=== PATIENT | male | born 1985 | race American Indian/Alaskan Native ===

== ENCOUNTER 2018-07-15 16:18 | Inpatient (IN) | payer OTHER ==
[2018-07-15 16:27] VITALS: BMI 23.7
--- NOTE | 2018-07-15 16:37 | ED PDOC ---
Arrival/HPI - General Historian: Patient - History of Present Illness Narrative History of Present Illness (Text): 07/15/18 16:36 33 year old male, with past medical history of <Tami Cunha - Last Filed: 07/15/18 16:37> <Teofilo Landrum - Last Filed: 07/15/18 16:47> - General Time Seen by Provider: 07/15/18 16:18 Past Medical History - Provider Review Nursing Documentation Reviewed: Yes <Tami Cunha - Last Filed: 07/15/18 16:37> Family/Social History - Physician Review Nursing Documentation Reviewed: Yes Family/Social History: Unknown Family HX <Tami Cunha - Last Filed: 07/15/18 16:37> Allergies/Home Meds <Tami Cunha - Last Filed: 07/15/18 16:37> <Teofilo Landrum - Last Filed: 07/15/18 16:47> Allergies/Adverse Reactions: Allergies shellfish derived Allergy (Verified 07/15/18 16:28) ANAPHYLAXIS Home Medications: Home Meds Medication Instructions Recorded Confirmed Ipratropium/Albuterol Sulfate 0.5 mg INH PRN PRN 07/15/18 07/15/18 [Iprat-Albut 0.5-3(2.5) mg/3 ml] Levofloxacin [Levaquin] 500 mg PO DAILY 07/15/18 07/15/18 Prednisone 10 mg PO BID 07/15/18 07/15/18 Review of Systems - Physician Review All systems were reviewed & negative as marked: Yes - Review of Systems Constitutional: absent: Fevers Respiratory: SOB Cardiovascular: absent: Chest Pain, HARRIS Gastrointestinal: absent: Abdominal Pain, Diarrhea, Nausea, Vomiting Musculoskeletal: absent: Back Pain, Neck Pain Neurological: absent: Headache, Dizziness <Tami Cunha - Last Filed: 07/15/18 16:37> Physical Exam Vital Signs Reviewed: Yes Vital Signs Temp Pulse Resp BP Pulse Ox 07/15/18 16:27 98.6 F 74 19 129/90 97 Temperature: Afebrile Blood Pressure: Normal Pulse: Regular Respiratory Rate: Normal Appearance: Positive for: Well-Appearing, Non-Toxic, Comfortable Pain Distress: None Mental Status: Positive for: Alert and Oriented X 3 - Systems Exam Head: Present: Atraumatic, Normocephalic Pupils: Present: PERRL Extroacular Muscles: Present: EOMI Conjunctiva: Present: Normal Mouth: Present: Moist Mucous Membranes Neck: Present: Normal Range of Motion Respiratory/Chest: Present: Clear to Auscultation, Good Air Exchange. No: Respiratory Distress, Accessory Muscle Use Cardiovascular: Present: Regular Rate and Rhythm, Normal S1, S2. No: Murmurs Abdomen: No: Tenderness, Distention, Peritoneal Signs Back: Present: Normal Inspection Upper Extremity: Present: Normal Inspection. No: Cyanosis, Edema Lower Extremity: Present: Normal Inspection. No: Edema Neurological: Present: GCS=15, CN II-XII Intact, Speech Normal Skin: Present: Warm, Dry, Normal Color. No: Rashes Psychiatric: Present: Alert, Oriented x 3, Normal Insight, Normal Concentration <Tami Cunha - Last Filed: 07/15/18 16:37> Vital Signs Temp Pulse Resp BP Pulse Ox 07/15/18 16:27 98.6 F 74 19 129/90 97 <Teofilo Landrum - Last Filed: 07/15/18 16:47> Medical Decision Making ED Course and Treatment: 07/15/18 16:38 Impression: Differential Diagnosis included but are not limited to: Plan: -- Reassess and disposition Prior Visits: Notes and results from previous visits were reviewed. Progress Notes: <Tami Cunha - Last Filed: 07/15/18 16:37> - Scribe Statement The provider has reviewed the documentation as recorded by the Scribe Sonny Christensen. All medical record entries made by the Scribe were at my direction and personally dictated by me. I have reviewed the chart and agree that the record accurately reflects my personal performance of the history, physical exam, medical decision making, and the department course for this patient. I have also personally directed, reviewed, and agree with the discharge instructions and disposition. <Tami Cunah - Last Filed: 07/15/18 16:37>
--- NOTE | 2018-07-15 17:18 | ED PDOC ---
Arrival/HPI <Tami Cunha - Last Filed: 07/15/18 19:36> - History of Present Illness Narrative History of Present Illness (Text): 07/15/18 17:16 CC: sob, wheezing This is a 33 year old male with PMH of crohns disease, asthma (last admit 07/09/18-07/11/18 in [facility] in [facility]) who presents with sob and wheezing for the past 7 days. Pt was seen admitted in [facility] ([facility]) and treated for asthma exacerbation 07/09/18-07/11/18 (signed out AMA). Pt reports he received duonebs, steroids, magnesium, but did not improve and eventually signed out AMA. He was sent home with prescriptions for duoneb, levofloxacin (4 pills as per pt), prednisone dose pack. Pt states that this all started after he developed a cough productive of yellow sputum on saturday (07/08). Since then he has had worsening exertional sob and cough, with nasal and chest congestion. Pt also states that he felt some crunching under the skin around the neck which started two days ago and is improving. Denies difficult swallowing, food getting stuck in the throat, fever, chills, chest pain, abdominal pain, nausea, vomiting, diarrhea , lightheadedness, dizziness, drooling, leg pain or swelling, recent travel, car ride longer than an hour, airplane rides. PMH: crohns disease, asthma (last admit 07/09/18-07/11/18 in [facility] in [facility]). No history of intubation. Pt has had multiple flairs of asthma while a child, last flair was 2 years ago prior to the most recent h ospitalization PSH: bowel resection in 2002 secondary to crohns, patellar tendon repair 3 years ago Meds: albuterol inhaler, duonebs, levofloxacin, prednisone Allx: seafood Social hx: social smoker, social drinker, occasional marijuana use Did not receive the flu shot this year. <Teofilo Landrum - Last Filed: 07/16/18 11:58> - General Chief Complaint: Shortness Of Breath Time Seen by Provider: 07/15/18 16:18 Past Medical History - Infectious Disease Hx of Infectious Diseases: None - Cardiac Hx Cardiac Disorders: No - Pulmonary Hx Respiratory Disorders: Yes Hx Asthma: Yes - Neurological Hx Neurological Disorder: No - HEENT Hx HEENT Disorder: No - Renal Hx Renal Disorder: No - Endocrine/Metabolic Hx Endocrine Disorders: No - Hematological/Oncological Hx Blood Disorders: No - Integumentary Hx Dermatological Disorder: No - Musculoskeletal/Rheumatological Hx Musculoskeletal Disorders: No - Gastrointestinal Hx Gastrointestinal Disorders: Yes Hx Crohn's Disease: Yes - Genitourinary/Gynecological Hx Genitourinary Disorders: No - Psychiatric Hx Psychophysiologic Disorder: No Hx Substance Use: No <Teofilo Landrum - Last Filed: 07/16/18 11:58> Family/Social History Family/Social History: Unknown Family HX Smoking Status: Never Smoked Hx Alcohol Use: Yes Frequency of alcohol use: Socially Hx Substance Use: No <Teofilo Landrum - Last Filed: 07/16/18 11:58> Allergies/Home Meds <Tami Cunha - Last Filed: 07/15/18 19:36> <Teofilo Landrum - Last Filed: 07/16/18 11:58> Allergies/Adverse Reactions: Allergies shellfish derived Allergy (Verified 07/15/18 16:28) ANAPHYLAXIS Home Medications: Home Meds Medication Instructions Recorded Confirmed Ipratropium/Albuterol Sulfate 0.5 mg INH PRN PRN 07/15/18 07/15/18 [Iprat-Albut 0.5-3(2.5) mg/3 ml] Levofloxacin [Levaquin] 500 mg PO DAILY 07/15/18 07/15/18 Prednisone 10 mg PO BID 07/15/18 07/15/18 Review of Systems - Review of Systems Systems not reviewed;Unavailable: Other (see HPI) <Teofilo Landrum - Last Filed: 07/16/18 11:58> Physical Exam Vital Signs Temp Pulse Resp BP Pulse Ox 07/15/18 18:51 60 18 118/80 99 07/15/18 16:27 98.6 F 74 19 129/90 97 <Tami Cunha - Last Filed: 07/15/18 19:36> Vital Signs Temp Pulse Resp BP Pulse Ox 07/15/18 16:27 98.6 F 74 19 129/90 97 Temperature: Afebrile Blood Pressure: Normal Pulse: Regular Respiratory Rate: Normal Appearance: Positive for: Well-Appearing, Comfortable Pain Distress: None Mental Status: Positive for: Alert and Oriented X 3 - Systems Exam Head: Present: Atraumatic, Normocephalic Extroacular Muscles: Present: EOMI Conjunctiva: Present: Normal Mouth: Present: Moist Mucous Membranes Pharnyx: Present: ERYTHEMA. No: EXUDATE, TONSILS ENLARGED, Muffled/Hoarse Voice, [place] Neck: Present: Normal Range of Motion, Trachea Midline. No: Meningeal Signs, Paraspinal Tenderness, Lymphadenopathy Respiratory/Chest: Present: Good Air Exchange, Wheezes, Rhonchi, Other ((+) crepitus to lower neck and subcutaneous tissue along sugey bilateral clavicle.). No: Respiratory Distress, Accessory Muscle Use, Decreased Breath Sounds, Rales, Retracting Cardiovascular: Present: Regular Rate and Rhythm, Normal S1, S2. No: Rub, Gallop Abdomen: Present: Normal Bowel Sounds. No: Tenderness, Distention, Peritoneal Signs, Rebound, Guarding Upper Extremity: Present: Normal Inspection, NORMAL PULSES Lower Extremity: Present: Normal Inspection, NORMAL PULSES. No: Edema, CALF TENDERNESS Neurological: Present: GCS=15 Skin: Present: Warm, Dry Lymphatic: No: Cervical Adenopathy Psychiatric: Present: Alert, Oriented x 3 <Teofilo Landrum - Last Filed: 07/16/18 11:58> Medical Decision Making ED Course and Treatment: 07/15/18 19:36 33 year old male presents to the Emergency Department complaining of shortness of breath. In agreement with resident note, which includes further HPI details. Patient was seen and evaluated with resident, came up with plan and treatment together. - Lab Interpretations Lab Results: 07/15/18 18:50 07/15/18 18:50 Lab Results 07/15/18 18:50: Sodium 138, Potassium 4.6, Chloride 101, Carbon Dioxide 28, Anion Gap 14, BUN 11, Creatinine 0.8, Est GFR ( Amer) > 60, Est GFR (Non- Af Amer) > 60, Random Glucose 107, Calcium 9.7, Phosphorus 3.1, Magnesium 1.8, Total Bilirubin 0.5, AST 21, ALT 32, Alkaline Phosphatase 71, Total Protein 8.5 H, Albumin 4.5, Globulin 4.0, Albumin/Globulin Ratio 1.1 07/15/18 18:50: WBC 9.1, RBC 4.82, Hgb 14.9, Hct 44.3, MCV 91.9, MCH 30.9, MCHC 33.6, RDW 12.2, Plt Count 254, MPV 10.6, Gran % 88.9 H, Lymph % (Auto) 6.6 L, [facility] % (Auto) 4.4, Eos % (Auto) 0.1 L, Baso % (Auto) 0.0, Gran # 8.09 H, Lymph # (Auto) 0.6 L, [facility] # (Auto) 0.4, Eos # (Auto) 0.0, Baso # (Auto) 0.00 - RAD Interpretation Radiology Orders: 07/15/18 17:37 CXR [CHEST PORTABLE] [RAD] Stat 07/15/18 18:35 CHEST W/O CONTRAST [CT] Stat - Medication Orders Current Medication Orders: Discontinued Medications Albuterol/Ipratropium (Duoneb 3 Mg/0.5 Mg (3 Ml) Ud) 3 ml IH Q15M NICO Stop: 07/15/18 18:16 Last Admin: 07/15/18 18:47 Dose: 3 ml <Tami Cunha - Last Filed: 07/15/18 19:36> ED Course and Treatment: Pt is resting comfortably, without tachypnea, dyspnea. Speaking in full sentences. Pt does have some wheezing on exam with ronchus breath sounds. Subcutaneous crepitus on exam. Will give duonebs x3. Chest X-ray, pre/post peak flow ordered. Chest X-ray shows extensive subcutaneous emphysema involving the soft tissues of the neck bilaterally. Suspect pneumomediastinum. Question possibility of small left apical pneumothorax. Chest CT recommended. Will ordered chest CT with IV contrast. Case discussed with Dr. Malone, radiology, who reports that pt does not need IV contrast. Chest CT w/o contrast ordered. 07/15/18 19:26 Emergency department attending, Dr. Cunha, discussed the case with Dr. Stewart. Transfer of pt care will be made to Dr. Stewart due to Chest CT and labs pending. 07/15/18 19:27 I spoke with [facility] ([facility]) who state that medical records is closed and to request medical records from prior inpatient stay in the morning. I filled out the release of medical information form with the pt, who authorizes release of medical information. Completed form left in pt chart. - RAD Interpretation Narrative RAD Interpretations (Text): Chest X-ray shows extensive subcutaneous emphysema involving the soft tissues of the neck bilaterally. Suspect pneumomediastinum. Question possibility of small left apical pneumothorax. Chest CT recommended. Will ordered chest CT with IV contrast. Bung Remover: Radiologist - EKG Interpretation EKG Interpretation (Text): NSR at 63, no acute sttw changes, early repolarization; WA is 142, QTc is 386 as read by Emergency department attending Interpreted by ED Physician: Yes <Teofilo Landrum - Last Filed: 07/16/18 11:58> - PA / UNION REPRESENTATIVE / Resident Statement MD/DO has reviewed & agrees with the documentation as recorded. MD/DO has examined the patient and agrees with the treatment plan. - Scribe Statement The provider has reviewed the documentation as recorded by the Scribe Sonny Christensen. All medical record entries made by the Scribe were at my direction and personally dictated by me. I have reviewed the chart and agree that the record a ccurately reflects my personal performance of the history, physical exam, medical decision making, and the department course for this patient. I have also personally directed, reviewed, and agree with the discharge instructions and disposition. <Tami Cunha - Last Filed: 07/15/18 19:36> Disposition/Present on Arrival <Tami Cunha - Last Filed: 07/15/18 19:36> - Present on Arrival Any Indicators Present on Arrival: No History of DVT/PE: No History of Uncontrolled Diabetes: No Urinary Catheter: No History of Decub. Ulcer: No History Surgical Site Infection Following: None - Disposition Have Diagnosis and Disposition been Completed?: Yes Disposition Time: 21:44 <Teofilo Landrum - Last Filed: 07/16/18 11:58> - Disposition Diagnosis: Asthma, Subcutaneous emphysema Disposition: HOSPITALIZED Condition: GUARDED
[2018-07-15] MEDS: Albuterol-Ipratrop 3 mg / 0.5 (3 ml) UD IH SCH ×3 (18:00→18:47)
--- NOTE | 2018-07-15 18:12 | RAD ---
HISTORY: sob COMPARISON: None available. TECHNIQUE: Chest, one view. FINDINGS: Extensive subcutaneous emphysema involving soft tissues of the neck bilaterally. LUNGS: No focal consolidation. Please note that chest x-ray has limited sensitivity for the detection of pulmonary masses. PLEURA: No significant pleural effusion identified. Question possibility of small left apical pneumothorax. CARDIOVASCULAR: Suspect pneumomediastinum. Heart size appears within normal limits. No significant atherosclerotic calcification present. OSSEOUS STRUCTURES: No acute osseous abnormality identified. VISUALIZED UPPER ABDOMEN: Unremarkable. OTHER FINDINGS: None. IMPRESSION: Extensive subcutaneous emphysema involving the soft tissues of the neck bilaterally. Suspect pneumomediastinum. Question possibility of small left apical pneumothorax. Recommend CT of the chest for further evaluation. Findings discussed with Dr. Fletcher on 07/15/18 at 605pm
[2018-07-15 18:54] LABS: EOS % 0.1 % (1.5-5.0); GRAN # 8.09 (1.4-6.5); GRAN % 88.9 % (50.0-68.0); HEMOGLOBIN 14.9 g/dL (14.0-18.0); LYMPH # 0.6 (1.2-3.4); LYMPH % 6.6 % (22.0-35.0); MEAN CELL VOLUME 91.9 fl (80.0-105.0); MEAN CORPUSCULAR HEMOGLOBIN 30.9 pg (25.0-35.0); MEAN CORPUSCULAR HGB CONC 33.6 g/dl (31.0-37.0); MEAN PLATELET VOLUME 10.6 fl (7.0-11.0); MONO # 0.4 (0.1-0.6); MONO % 4.4 % (1.0-6.0); RBC 4.82 10^6/uL (3.5-6.1); RED CELL DISTRIBUTION WIDTH 12.2 % (11.5-14.5); WHITE BLOOD COUNT 9.1 10^3/ul (4.5-11.0)
[2018-07-15 19:07] LABS: ALB/GLOB RATIO 1.1 (1.1-1.8); ALBUMIN 4.5 g/dL (3.0-4.8); ALT/SGPT 32 U/L (7-56); AST/SGOT 21 U/L (17-59); BLOOD UREA NITROGEN 11 mg/dL (7-21); CALCIUM 9.7 mg/dL (8.4-10.5); GFR NON-AFRICAN AMERICAN > 60
--- NOTE | 2018-07-15 19:42 | ED PDOC ---
Physical Exam Vital Signs Temp Pulse Resp BP Pulse Ox 07/15/18 18:51 60 18 118/80 99 07/15/18 16:27 98.6 F 74 19 129/90 97 Medical Decision Making ED Course and Treatment: 07/15/18 21:05 CT Chest reviewed by radiologist, shows: History: Asthma. Comparison: None Technique: Noncontrast CT of the chest. Noncontrast CT examination of the chest was obtained. There is no consolidation or atelectasis or pleural effusion. There is no parenchymal nodule. There is scarring and bronchiectatic changes at the right lower lung medially and inferiorly. Scarring left lung base. The heart and hilar mediastinal structures appear within normal limits in size. There is no hilar mediastinal lymphadenopathy. Note is made of pneumomediastinum. There is extensive subcutaneous air present at the supraclavicular regions and axillary regions and along the lateral chest clark. There is no suspicious mass or lymphadenopathy in the upper abdomen. Osseous structures appear intact. Impression: No consolidation or atelectasis or pleural effusion. Bronchiectatic changes and scarring at the right lower lung anteriorly. Mild scarring left lung base. Pneumomediastinum. Extensive subcutaneous air at the supraclavicular and infraclavicular and axillary regions as well as along the lateral chest clark. Close clinical correlation advised. 07/15/18 21:[address] Turner and the resident about patient plan. Dr. Turner agrees to management plan and agrees to admit patient. - Lab Interpretations Lab Results: 07/15/18 18:50 07/15/18 18:50 Lab Results 07/15/18 18:50: Sodium 138, Potassium 4.6, Chloride 101, Carbon Dioxide 28, Anion Gap 14, BUN 11, Creatinine 0.8, Est GFR ( Amer) > 60, Est GFR (Non- Af Amer) > 60, Random Glucose 107, Calcium 9.7, Phosphorus 3.1, Magnesium 1.8, Total Bilirubin 0.5, AST 21, ALT 32, Alkaline Phosphatase 71, Total Protein 8.5 H, Albumin 4.5, Globulin 4.0, Albumin/Globulin Ratio 1.1 07/15/18 18:50: WBC 9.1, RBC 4.82, Hgb 14.9, Hct 44.3, MCV 91.9, MCH 30.9, MCHC 33.6, RDW 12.2, Plt Count 254, MPV 10.6, Gran % 88.9 H, Lymph % (Auto) 6.6 L, [place] % (Auto) 4.4, Eos % (Auto) 0.1 L, Baso % (Auto) 0.0, Gran # 8.09 H, Lymph # (Auto) 0.6 L, [place] # (Auto) 0.4, Eos # (Auto) 0.0, Baso # (Auto) 0.00 - RAD Interpretation Radiology Orders: 07/15/18 17:37 CXR [CHEST PORTABLE] [RAD] Stat 07/15/18 18:35 CHEST W/O CONTRAST [CT] Stat - Medication Orders Current Medication Orders: Discontinued Medications Albuterol/Ipratropium (Duoneb 3 Mg/0.5 Mg (3 Ml) Ud) 3 ml IH Q15M NICO Stop: 07/15/18 18:16 Last Admin: 07/15/18 18:47 Dose: 3 ml Disposition/Present on Arrival - Present on Arrival Any Indicators Present on Arrival: No History of DVT/PE: No History of Uncontrolled Diabetes: No Urinary Catheter: No History of Decub. Ulcer: No History Surgical Site Infection Following: None - Disposition Have Diagnosis and Disposition been Completed?: Yes Diagnosis: Asthma, Subcutaneous emphysema Disposition: HOSPITALIZED Disposition Time: 21:45 Condition: GUARDED
[2018-07-15] MEDS ORDERED: Albuterol 0.083% Inhal Sol (2.5 mg/3 mL) UD INH PRN (23:39)
--- NOTE | 2018-07-16 00:10 | CP.PCM.HP ---
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 He reported one week ago symptoms began w/ a productive cough w/ yellow sputum which resulted in worsening HARRIS, SOB, Wheezing, and Congestion. He was admitted to [facility] treated for asthma exacerbation from 07/09- however left AMA before completing treatment. He stated that 4 days prior to presentation he began experiencing a crunching sensation around his neck and chest. He reports that his asthma symptoms feel much improved compared to one week ago however he does experience some HARRIS with prolonged activity. He denies any difficulty swallowing, throat pain, or abnormal sensation with eating. Denies any trauma to his chest, excessive coughing, or vomiting. Does report a cavity/dental issue in his bottom right jaw. Remainder of 12 system ROS is negative at this time. PMH: crohns disease, asthma (last admit 07/09/18-07/11/18 in [facility] in [facility]). No history of intubation. Pt has had multiple flairs of asthma while a child, last flair was 2 years ago prior to the most recent hospitalization PSH: bowel resection in 2002 secondary to crohns, patellar tendon repair 3 years ago Meds: albuterol inhaler, duonebs, levofloxacin, prednisone Allx: seafood Social hx: social smoker, social drinker, occasional marijuana use Did not receive the flu shot this year. Present on Admission - Present on Admission Any Indicators Present on Admission: No Review of Systems - Review of Systems All systems: reviewed and no additional remarkable complaints except Review of Systems: As per HPI Past Patient History - Infectious Disease Hx of Infectious Diseases: None - Past Social History Smoking Status: Never Smoked - CARDIAC Hx Cardiac Disorders: No - PULMONARY Hx Respiratory Disorders: Yes Hx Asthma: Yes - NEUROLOGICAL Hx Neurological Disorder: No - HEENT Hx HEENT Problems: No - RENAL Hx Chronic Kidney Disease: No - ENDOCRINE/METABOLIC Hx Endocrine Disorders: No - HEMATOLOGICAL/ONCOLOGICAL Hx Blood Disorders: No - INTEGUMENTARY Hx Dermatological Problems: No - MUSCULOSKELETAL/RHEUMATOLOGICAL Hx Musculoskeletal Disorders: No - GASTROINTESTINAL Hx Gastrointestinal Disorders: Yes Hx Crohn's Disease: Yes - GENITOURINARY/GYNECOLOGICAL Hx Genitourinary Disorders: No - PSYCHIATRIC Hx Psychophysiologic Disorder: No Hx Substance Use: No - SURGICAL HISTORY Hx Surgeries: No Meds Allergies/Adverse Reactions: Allergies Allergy/AdvReac Type Severity Reaction Status Date / Time shellfish derived Allergy ANAPHYLAXIS Verified 07/15/18 16:28 Physical Exam - Constitutional Appears: Well, Non-toxic, No Acute Distress - Head Exam Head Exam: ATRAUMATIC, NORMAL INSPECTION, NORMOCEPHALIC - Eye Exam Eye Exam: EOMI, Normal appearance, PERRL - ENT Exam ENT Exam: Mucous Membranes Moist Additional comments: Significant cavity in tooth #31/32 No abcess or drainage appreciated No erythema noted - Neck Exam Additional comments: Crepitus to palpation along neck BL - Respiratory Exam Respiratory Exam: Wheezes (insp + exp wheezes ). absent: Rhonchi, Respiratory Distress Additional comments: Crepitus upon palpation of the chest extending from clavicles to diaphram level bilaterally. - Cardiovascular Exam Cardiovascular Exam: RRR, +S1, +S2. absent: Systolic Murmur - GI/Abdominal Exam GI & Abdominal Exam: Soft. absent: Tenderness - Extremities Exam Extremities exam: Positive for: normal capillary refill, pedal pulses present - Neurological Exam Neurological exam: Alert, CN II-XII Intact, Oriented x3 - Skin Skin Exam: Dry, Intact, Normal Color, Warm Results - Vital Signs Recent Vital Signs: Last Vital Signs Temp 98.2 F 07/15/18 23:11 Pulse 62 07/15/18 23:11 Resp 18 07/15/18 23:11 BP 118/81 07/15/18 23:11 Pulse Ox 98 07/15/18 23:11 - Labs Result Diagrams: 07/15/18 18:50 07/15/18 18:50 Labs: Laboratory Results - last 24 hr 07/15/18 07/15/18 18:50 18:50 WBC 9.1 RBC 4.82 Hgb 14.9 Hct 44.3 MCV 91.9 MCH 30.9 MCHC 33.6 RDW 12.2 Plt Count 254 MPV 10.6 Gran % 88.9 H Lymph % (Auto) 6.[address] [place] [place] % (Auto) 4.4 Eos % (Auto) 0.1 L Baso % (Auto) 0.0 Gran # 8.09 H Lymph # (Auto) 0.[address] [place] # (Auto) 0.4 Eos # (Auto) 0.0 Baso # (Auto) 0.00 Sodium 138 Potassium 4.6 Chloride 101 Carbon Dioxide 28 Anion Gap 14 BUN 11 Creatinine 0.8 Est GFR ( Amer) > 60 Est GFR (Non-Af Amer) > 60 Random Glucose 107 Calcium 9.7 Phosphorus 3.1 Magnesium 1.8 Total Bilirubin 0.5 AST 21 ALT 32 Alkaline Phosphatase 71 Total Protein 8.5 H Albumin 4.5 Globulin 4.0 Albumin/Globulin Ratio 1.1 Assessment & Plan - Assessment and Plan (Free Text) Assessment: 33M presented to [facility] for symptoms of asthma exacerbation, cough, and subcutaneous crepitus admitted for management of asthma exacerbation, and workup of pneumomediastinum Plan: Pneumomediastinum as per gary on CT Chest: CT Chest: There is no consolidation or atelectasis or pleural effusion. There is no parenchymal nodule. There is scarring and bronchiectatic changes at the right lower lung medially and inferiorly. Scarring left lung base. The heart and hilar mediastinal structures appear within normal limits in size. There is no hilar mediastinal lymphadenopathy. Note is made of pneumomediastinum. There is extensive subcutaneous air present at the supraclavicular regions and axillary regions and along the lateral chest clark. There is no suspicious mass or lymphadenopathy in the upper abdomen. Osseous structures appear intact. Impression: No consolidation or atelectasis or pleural effusion. Bronchiectatic changes and scarring at the right lower lung anteriorly. Mild scarring left lung base. Pneumomediastinum. Extensive subcutaneous air at the supraclavicular and infraclavicular and axillary regions as well as along the lateral chest clark. Close clinical correlation advised. Source of pneumomediastinum is unknown at this time sources include: trachea vs lung vs esophagus STRICT NPO Gastrograffin esophagram in AM r/o esophageal rupture ENT consulted appreciate reccs GI consulted appreciate reccs 2L O2 NC Cont Asthma Exacerbation Albuterol Q6H NICO/ Q2H PRN Solumedrol 20 IVP Q8 Mucinex Chest PT O2 NC PRN URI/Cough: Afebrile w/ no white count Completed outpatient levaquin course as out pt No findings of PNA on CXR SCD for DVT PPX No GI PPX Diet: NPO Patient was seen examined and discussed w/ attending physician Dr. Johnny Iniguez DO PGY1 - Date & Time Date: 07/16/18 Time: 03:39 <Jun Turner - Last Filed: 07/16/18 06:30> Results - Vital Signs Recent Vital Signs: Last Vital Signs Temp 98.0 F 07/16/18 05:29 Pulse 55 L 07/16/18 05:29 Resp 18 07/16/18 05:29 BP 104/57 L 07/16/18 05:29 Pulse Ox 96 07/16/18 05:29 - Labs Result Diagrams: 07/15/18 18:50 07/15/18 18:50 Labs: Laboratory Results - last 24 hr 07/15/18 07/15/18 07/16/18 18:50 18:50 05:35 WBC 9.1 RBC 4.82 Hgb 14.9 Hct 44.3 MCV 91.9 MCH 30.9 MCHC 33.6 RDW 12.2 Plt Count 254 MPV 10.6 Gran % 88.9 H Lymph % (Auto) 6.[address] [place] % (Auto) 4.4 Eos % (Auto) 0.1 L Baso % (Auto) 0.0 Gran # 8.09 H Lymph # (Auto) 0.[address] [place] # (Auto) 0.4 Eos # (Auto) 0.0 Baso # (Auto) 0.00 Sodium 138 Potassium 4.6 Chloride 101 Carbon Dioxide 28 Anion Gap 14 BUN 11 Creatinine 0.8 Est GFR ( Amer) > 60 Est GFR (Non-Af Amer) > 60 Random Glucose 107 Calcium 9.7 Phosphorus 3.1 Magnesium 1.8 Total Bilirubin 0.5 AST 21 ALT 32 Alkaline Phosphatase 71 Total Protein 8.5 H Albumin 4.5 Globulin 4.0 Albumin/Globulin Ratio 1.1 Urine Opiates Screen Positive H Urine Methadone Screen Negative Ur Barbiturates Screen Negative Ur Phencyclidine Scrn Negative Ur Amphetamines Screen Negative U Benzodiazepines Scrn Negative U Oth Cocaine Metabols Negative U Cannabinoids Screen Positive H Attending/Attestation - Attestation I have personally seen and examined this patient.: Yes I have fully participated in the care of the patient.: Yes I have reviewed all pertinent clinical information: Yes
[2018-07-16] MEDS: MethylPREDNISolone 40 mg Vial IVP SCH ×4 (00:33→21:50)
[2018-07-16] MEDS: Albuterol 0.083% Inhal Sol (2.5 mg/3 mL) UD INH SCH ×4 (02:10→20:00)
[2018-07-16 06:13] LABS: PHENCYCLIDINE, UR NEGATIVE (NEGATIVE)
[2018-07-16 06:19] LABS: BARBITURATES, UR NEGATIVE (NEGATIVE); BENZODIAZEPINES, UR NEGATIVE (NEGATIVE); OPIATES, UR POSITIVE (NEGATIVE)
[2018-07-16 06:34] LABS: EOS % 0.4 % (1.5-5.0); GRAN # 9.02 (1.4-6.5); GRAN % 88.1 % (50.0-68.0); HEMOGLOBIN 13.9 g/dL (14.0-18.0); LYMPH # 0.8 (1.2-3.4); LYMPH % 7.6 % (22.0-35.0); MEAN CELL VOLUME 92.7 fl (80.0-105.0); MEAN CORPUSCULAR HEMOGLOBIN 30.7 pg (25.0-35.0); MEAN CORPUSCULAR HGB CONC 33.1 g/dl (31.0-37.0); MEAN PLATELET VOLUME 10.8 fl (7.0-11.0); MONO # 0.4 (0.1-0.6); MONO % 3.9 % (1.0-6.0); RBC 4.53 10^6/uL (3.5-6.1); RED CELL DISTRIBUTION WIDTH 12.3 % (11.5-14.5); WHITE BLOOD COUNT 10.2 10^3/ul (4.5-11.0)
[2018-07-16 06:46] LABS: ALB/GLOB RATIO 1.1 (1.1-1.8); ALBUMIN 4.1 g/dL (3.0-4.8); ALT/SGPT 32 U/L (7-56); AST/SGOT 21 U/L (17-59); BLOOD UREA NITROGEN 11 mg/dL (7-21); CALCIUM 9.4 mg/dL (8.4-10.5); GFR NON-AFRICAN AMERICAN > 60
--- NOTE | 2018-07-16 08:00 | CARD ---
APPROVED REPORT Date of service: 07/15/2018 EKG Measurement Heart [id number] <Conclusion> Normal sinus rhythm with sinus arrhythmia LVH by voltage criteria. ST elevation, probably due to early repolarization
--- NOTE | 2018-07-16 08:53 | CT ---
Date of service: 07/15/2018 PROCEDURE: CT Chest without contrast HISTORY: subcutaneous crepitus r/o pneumomediastinum COMPARISON: None available. TECHNIQUE: Contiguous axial images were obtained through the chest without intravenous contrast enhancement. Sagittal and coronal reconstructions were performed. Radiation dose: Total exam DLP = 363.24 mGy-cm. This CT exam was performed using one or more of the following dose reduction techniques: Automated exposure control, adjustment of the mA and/or kV according to patient size, and/or use of iterative reconstruction technique. FINDINGS: LUNGS: Clear lungs. Visualized airway clear MEDIASTINUM: Unremarkable thoracic aorta. No aneurysm. Normal sized heart. Main pulmonary artery unremarkable. No vascular congestion. No lymphadenopathy. No aortic atherosclerotic calcification. PLEURA: No pleural fluid. No pneumothorax. BONES: No fracture. No destructive lesion. UPPER ABDOMEN: Grossly unremarkable. OTHER FINDINGS: Severe pneumo mediastinum as well as severe subcutaneous air. IMPRESSION: Severe pneumo mediastinum as well as severe subcutaneous air.
[2018-07-16] MEDS ORDERED: Iohexol 240 (50 ml) ONE ×2 (09:32→10:05)
[2018-07-16] MEDS: guaiFENesin-DM 600-30 mg ER Tab PO SCH ×2 (10:00→17:06)
--- NOTE | 2018-07-16 10:51 | RAD ---
Date of service: 07/16/2018 PROCEDURE: Esophagram HISTORY: Pneumomediastinum COMPARISON: CT chest 07/15/2018 TECHNIQUE: Esophagogram view was performed utilizing single contrast technique. Water-soluble iodinated contrast material was administered orally under fluoroscopic monitoring. Total exam DLP: 35.772 mGy-cm. FINDINGS: A ship engines operating engineer radiograph of the chest demonstrates no pulmonary infiltrate. There is no evidence of pleural effusion. There is no pneumothorax. There is evidence of mild pneumomediastinum. There is subcutaneous emphysema seen about the upper chest and thoracic inlet region. The esophagus is normal in caliber. No mucosal abnormality of the esophagus is demonstrated. There is no evidence of extravasation of contrast material into the mediastinum during this examination. There is no evidence of stricture. There are no filling defects. There is no hiatal hernia. Gastroesophageal reflux was not witnessed during this examination. IMPRESSION: No evidence of esophageal perforation. Unremarkable examination aside from mild pneumomediastinum on ship engines operating engineer radiograph.
--- NOTE | 2018-07-16 12:24 | CP.PCM.CON ---
History of Present Illness - History of Present Illness History of Present Illness: PULMONARY CONSULT NOTE REASON FOR CONSULT: PNEUNOMEDIASTINUM HPI Patient is 33yo male with PMHx of Asthma (uses rescue inhaler 2x/month), no intubations, Crohns disease, with recent hospitalization at [facility] for asthma exacerbation, left AMA 07/11, presents with SOB, and neck pain since Thursday 07/12. Pt notes worsening bilateral neck pain, and SOB since Saturday, with mild wheezing, and cough productive of clear phlegm. No other constitutional symptoms. imaging done, CXR, CT chest, which revealed pneumomedia stinum. PMH: crohns disease, asthma PSH: bowel resection in 2002 secondary to crohns, patellar tendon repair 3 years ago Meds: albuterol inhaler, duonebs, levofloxacin, prednisone Allx: seafood Social hx: social smoker, social drinker, occasional marijuana use Review of Systems - Review of Systems Review of Systems: as per HPI Past Patient History - Infectious Disease Hx of Infectious Diseases: None - Past Social History Smoking Status: Never Smoked - CARDIAC Hx Cardiac Disorders: No - PULMONARY Hx Respiratory Disorders: Yes Hx Asthma: Yes - NEUROLOGICAL Hx Neurological Disorder: No - HEENT Hx HEENT Problems: No - RENAL Hx Chronic Kidney Disease: No - ENDOCRINE/METABOLIC Hx Endocrine Disorders: No - HEMATOLOGICAL/ONCOLOGICAL Hx Blood Disorders: No - INTEGUMENTARY Hx Dermatological Problems: No - MUSCULOSKELETAL/RHEUMATOLOGICAL Hx Musculoskeletal Disorders: No - GASTROINTESTINAL Hx Gastrointestinal Disorders: Yes Hx Crohn's Disease: Yes - GENITOURINARY/GYNECOLOGICAL Hx Genitourinary Disorders: No - PSYCHIATRIC Hx Psychophysiologic Disorder: No Hx Substance Use: No - SURGICAL HISTORY Hx Surgeries: No Meds Allergies/Adverse Reactions: Allergies Allergy/AdvReac Type Severity Reaction Status Date / Time shellfish derived Allergy ANAPHYLAXIS Verified 07/15/18 16:28 - Medications Medications: Current Medications Albuterol Sulfate (Albuterol 0.083% Inhal Larissa (2.5 Mg/3 Ml) Ud) 2.5 mg INH [id number] NICO Last Admin: 07/16/18 08:01 Dose: 2.5 mg Albuterol Sulfate (Albuterol 0.083% Inhal Larissa (2.5 Mg/3 Ml) Ud) 2.5 mg INH Q2H PRN PRN Reason: Shortness of Breath Last Admin: 07/16/18 05:45 Dose: 2.5 mg Guaifenesin/Dextromethorphan (Mucinex-Dm 600-30 Mg) 1 tab PO BID NICO Methylprednisolone (Solu-Medrol) 20 mg IVP Q8 NICO Last Admin: 07/16/18 05:31 Dose: 20 mg Physical Exam - Constitutional Appears: Well, Non-toxic, No Acute Distress - Head Exam Head Exam: NORMAL INSPECTION - Eye Exam Eye Exam: Normal appearance - ENT Exam ENT Exam: Mucous Membranes Moist - Neck Exam Neck exam: Positive for: Tenderness Additional comments: +crepitus - Respiratory Exam Respiratory Exam: Wheezes, NORMAL BREATHING PATTERN - Cardiovascular Exam Cardiovascular Exam: REGULAR RHYTHM, +S1, +S2 - GI/Abdominal Exam GI & Abdominal Exam: Normal Bowel Sounds, Soft - Extremities Exam Extremities exam: Positive for: normal inspection - Neurological Exam Neurological exam: Alert, Oriented x3 - Psychiatric Exam Psychiatric exam: Normal Affect, Normal Mood - Skin Skin Exam: Normal Color, Warm Results - Vital Signs Recent Vital Signs: Last Vital Signs Temp 97.3 F L 07/16/18 11:59 Pulse 58 L 07/16/18 11:59 Resp 18 07/16/18 11:59 BP 120/70 07/16/18 11:59 Pulse Ox 96 07/16/18 05:29 - Labs Result Diagrams: 07/16/18 06:00 07/16/18 06:00 Labs: Laboratory Results - last 24 hr 07/15/18 07/15/18 07/16/18 18:50 18:50 05:35 WBC 9.1 RBC 4.82 Hgb 14.9 Hct 44.3 MCV 91.9 MCH 30.9 MCHC 33.6 RDW 12.2 Plt Count 254 MPV 10.6 Gran % 88.9 H Lymph % (Auto) 6.6 L [place] % (Auto) 4.4 Eos % (Auto) 0.1 L Baso % (Auto) 0.0 Gran # 8.09 H Lymph # (Auto) 0.6 L [place] # (Auto) 0.4 Eos # (Auto) 0.0 Baso # (Auto) 0.00 Sodium 138 Potassium 4.6 Chloride 101 Carbon Dioxide 28 Anion Gap 14 BUN 11 Creatinine 0.8 Est GFR ( Amer) > 60 Est GFR (Non-Af Amer) > 60 Random Glucose 107 Calcium 9.7 Phosphorus 3.1 Magnesium 1.8 Total Bilirubin 0.5 AST 21 ALT 32 Alkaline Phosphatase 71 Total Protein 8.5 H Albumin 4.5 Globulin 4.0 Albumin/Globulin Ratio 1.1 Urine Opiates Screen Positive H Urine Methadone Screen Negative Ur Barbiturates Screen Negative Ur Phencyclidine Scrn Negative Ur Amphetamines Screen Negative U Benzodiazepines Scrn Negative U Oth Cocaine Metabols Negative U Cannabinoids Screen Positive H 07/16/18 07/16/18 06:00 06:00 WBC 10.2 RBC 4.53 Hgb 13.9 L Hct 42.0 MCV 92.7 MCH 30.7 MCHC 33.1 RDW 12.3 Plt Count 266 MPV 10.8 Gran % 88.1 H Lymph % (Auto) 7.6 L [place] % (Auto) 3.9 Eos % (Auto) 0.4 L Baso % (Auto) 0.0 Gran # 9.02 H Lymph # (Auto) 0.8 L [place] # (Auto) 0.4 Eos # (Auto) 0.0 Baso # (Auto) 0.00 Sodium 136 Potassium 4.1 Chloride 101 Carbon Dioxide 27 Anion Gap 12 BUN 11 Creatinine 0.7 L Est GFR ( Amer) > 60 Est GFR (Non-Af Amer) > 60 Random Glucose 95 Calcium 9.4 Phosphorus 4.2 Magnesium 1.8 Total Bilirubin 0.8 AST 21 ALT 32 Alkaline Phosphatase 62 Total Protein 7.8 Albumin 4.1 Globulin 3.7 Albumin/Globulin Ratio 1.1 Urine Opiates Screen Urine Methadone Screen Ur Barbiturates Screen Ur Phencyclidine Scrn Ur Amphetamines Screen U Benzodiazepines Scrn U Oth Cocaine Metabols U Cannabinoids Screen Assessment & Plan - Assessment and Plan (Free Text) Assessment: 33yo male with Asthma exacerbation, and pneumomediastinum Asthma Exacerbation Pneumomediastinum Hx Smoking - currently afebrile, BP stable, comfortable in NAD, on 2LNC, sat 99%, STABLE - on exam has neck crepitus - Labs, iamging, chart reviewed - no evidence of Pneumothorax, rupture of esophagus on imaging - unclear etiology of pneumomediastinum, ??2/2 asthma exacerbation - would obtain a CTS eval - conservative management at this time - cough suppressing medications - pain control - Solumedrol 40mg IV BID - bed rest - Duonebs PRN - start on Asmanex 100mcg 2 puff bid - DVT ppx - Pulmonary will continue to follow
--- NOTE | 2018-07-16 12:57 | CP.PCM.CON ---
History of Present Illness - History of Present Illness History of Present Illness: 33 y/o patient admitted to [facility] with asthma exacerbation and subcutaneous emphysema/mediastinitis. Pt has hx of chron's dz and asthma. Recently admitted to outside facility and left AMA to be closer to his child. He has been coughing excessively and noted SQemphysema. Pt feels SQ emphysema has improved. He feels his breathing is still compromised. Pt denies pain. Cough persists. Denies dysphagia has minimal voice change. No hx of intubation this admission/illness. Review of Systems - Constitutional Constitutional: As Per HPI - EENT Eyes: As Per HPI Ears: As Per HPI Nose/Mouth/Throat: As Per HPI - Cardiovascular Cardiovascular: As Per HPI - Respiratory Respiratory: As Per HPI - Gastrointestinal Gastrointestinal: As Per HPI - Genitourinary Genitourinary: As Per HPI - Reproductive: Male Reproductive:Male: As Per HPI - Musculoskeletal Musculoskeletal: As Per HPI - Integumentary Integumentary: As Per HPI - Neurological Neurological: As Per HPI - Psychiatric Psychiatric: As Per HPI - Endocrine Endocrine: As Per HPI Past Patient History - Infectious Disease Hx of Infectious Diseases: None - Past Social History Smoking Status: Never Smoked - CARDIAC Hx Cardiac Disorders: No - PULMONARY Hx Respiratory Disorders: Yes Hx Asthma: Yes - NEUROLOGICAL Hx Neurological Disorder: No - HEENT Hx HEENT Problems: No - RENAL Hx Chronic Kidney Disease: No - ENDOCRINE/METABOLIC Hx Endocrine Disorders: No - HEMATOLOGICAL/ONCOLOGICAL Hx Blood Disorders: No - INTEGUMENTARY Hx Dermatological Problems: No - MUSCULOSKELETAL/RHEUMATOLOGICAL Hx Musculoskeletal Disorders: No - GASTROINTESTINAL Hx Gastrointestinal Disorders: Yes Hx Crohn's Disease: Yes - GENITOURINARY/GYNECOLOGICAL Hx Genitourinary Disorders: No - PSYCHIATRIC Hx Psychophysiologic Disorder: No Hx Substance Use: No - SURGICAL HISTORY Hx Surgeries: No Meds Allergies/Adverse Reactions: Allergies Allergy/AdvReac Type Severity Reaction Status Date / Time shellfish derived Allergy ANAPHYLAXIS Verified 07/15/18 16:28 - Medications Medications: Current Medications Albuterol Sulfate (Albuterol 0.083% Inhal Larissa (2.5 Mg/3 Ml) Ud) 2.5 mg INH [id number] NICO Last Admin: 07/16/18 08:01 Dose: 2.5 mg Albuterol Sulfate (Albuterol 0.083% Inhal Larissa (2.5 Mg/3 Ml) Ud) 2.5 mg INH Q2H PRN PRN Reason: Shortness of Breath Last Admin: 07/16/18 05:45 Dose: 2.5 mg Guaifenesin/Dextromethorphan (Mucinex-Dm 600-30 Mg) 1 tab PO BID NICO Methylprednisolone (Solu-Medrol) 20 mg IVP Q8 NICO Last Admin: 07/16/18 05:31 Dose: 20 mg Physical Exam - Constitutional Appears: Well, Non-toxic - Head Exam Head Exam: ATRAUMATIC, NORMAL INSPECTION, NORMOCEPHALIC - Eye Exam Pupil Exam: NORMAL ACCOMODATION - ENT Exam ENT Exam: Mucous Membranes Moist, Normal Exam Additional comments: EARS" WNL tm and canals Nose: wnl no rhinitis throat: wnl no erythema neck: minimal sQ emphysema - Neck Exam Additional comments: mild SQ emphysema - Respiratory Exam Respiratory Exam: NORMAL BREATHING PATTERN Results - Vital Signs Recent Vital Signs: Last Vital Signs Temp 97.3 F L 07/16/18 11:59 Pulse 58 L 07/16/18 11:59 Resp 18 07/16/18 11:59 BP 120/70 07/16/18 11:59 Pulse Ox 96 07/16/18 05:29 - Labs Result Diagrams: 07/16/18 06:00 07/16/18 06:00 Labs: Laboratory Results - last 24 hr 07/15/18 07/15/18 07/16/18 18:50 18:50 05:35 WBC 9.1 RBC 4.82 Hgb 14.9 Hct 44.3 MCV 91.9 MCH 30.9 MCHC 33.6 RDW 12.2 Plt Count 254 MPV 10.6 Gran % 88.9 H Lymph % (Auto) 6.6 L Desha % (Auto) 4.4 Eos % (Auto) 0.1 L Baso % (Auto) 0.0 Gran # 8.09 H Lymph # (Auto) 0.6 L Desha # (Auto) 0.4 Eos # (Auto) 0.0 Baso # (Auto) 0.00 Sodium 138 Potassium 4.6 Chloride 101 Carbon Dioxide 28 Anion Gap 14 BUN 11 Creatinine 0.8 Est GFR ( Amer) > 60 Est GFR (Non-Af Amer) > 60 Random Glucose 107 Calcium 9.7 Phosphorus 3.1 Magnesium 1.8 Total Bilirubin 0.5 AST 21 ALT 32 Alkaline Phosphatase 71 Total Protein 8.5 H Albumin 4.5 Globulin 4.0 Albumin/Globulin Ratio 1.1 Urine Opiates Screen Positive H Urine Methadone Screen Negative Ur Barbiturates Screen Negative Ur Phencyclidine Scrn Negative Ur Amphetamines Screen Negative U Benzodiazepines Scrn Negative U Oth Cocaine Metabols Negative U Cannabinoids Screen Positive H 07/16/18 07/16/18 06:00 06:00 WBC 10.2 RBC 4.53 Hgb 13.9 L Hct 42.0 MCV 92.7 MCH 30.7 MCHC 33.1 RDW 12.3 Plt Count 266 MPV 10.8 Gran % 88.1 H Lymph % (Auto) 7.6 L Desha % (Auto) 3.9 Eos % (Auto) 0.4 L Baso % (Auto) 0.0 Gran # 9.02 H Lymph # (Auto) 0.8 L Desha # (Auto) 0.4 Eos # (Auto) 0.0 Baso # (Auto) 0.00 Sodium 136 Potassium 4.1 Chloride 101 Carbon Dioxide 27 Anion Gap 12 BUN 11 Creatinine 0.7 L Est GFR ( Amer) > 60 Est GFR (Non-Af Amer) > 60 Random Glucose 95 Calcium 9.4 Phosphorus 4.2 Magnesium 1.8 Total Bilirubin 0.8 AST 21 ALT 32 Alkaline Phosphatase 62 Total Protein 7.8 Albumin 4.1 Globulin 3.7 Albumin/Globulin Ratio 1.1 Urine Opiates Screen Urine Methadone Screen Ur Barbiturates Screen Ur Phencyclidine Scrn Ur Amphetamines Screen U Benzodiazepines Scrn U Oth Cocaine Metabols U Cannabinoids Screen Assessment & Plan (1) Asthma Status: Acute (2) Subcutaneous emphysema Status: Acute (3) Cough Status: Acute (4) Other voice and resonance disorders Status: Acute - Assessment and Plan (Free Text) Plan: continue abx and steroid management. Time for resolution of SQ emphysema. Cough medicine to be innitiated - Date & Time Date: 07/16/18 Time: 12:57
[2018-07-16] MEDS ORDERED: guaiFENesin-Codeine 100-10mg/5ml Syrup (5 ml) UD PO PRN (12:58)
[2018-07-17 01:05] VITALS: RESP 18
[2018-07-17] MEDS: Albuterol 0.083% Inhal Sol (2.5 mg/3 mL) UD INH SCH ×3 (03:30→13:18)
[2018-07-17] MEDS: MethylPREDNISolone 40 mg Vial IVP SCH (06:07)
[2018-07-17 06:18] VITALS: O2SAT 98
[2018-07-17 06:34] LABS: ALB/GLOB RATIO 1.1 (1.1-1.8); ALT/SGPT 27 U/L (7-56); AST/SGOT 17 U/L (17-59); BLOOD UREA NITROGEN 14 mg/dL (7-21); CALCIUM 9.3 mg/dL (8.4-10.5); GFR NON-AFRICAN AMERICAN > 60
[2018-07-17 06:40] LABS: EOS % 0.1 % (1.5-5.0); GRAN # 12.81 (1.4-6.5); GRAN % 86.4 % (50.0-68.0); HEMOGLOBIN 13.8 g/dL (14.0-18.0); LYMPH # 1.5 (1.2-3.4); LYMPH % 10.2 % (22.0-35.0); MEAN CELL VOLUME 92.3 fl (80.0-105.0); MEAN CORPUSCULAR HEMOGLOBIN 30.5 pg (25.0-35.0); MEAN CORPUSCULAR HGB CONC 33.1 g/dl (31.0-37.0); MEAN PLATELET VOLUME 11.2 fl (7.0-11.0); MONO # 0.5 (0.1-0.6); MONO % 3.3 % (1.0-6.0); RBC 4.52 10^6/uL (3.5-6.1); RED CELL DISTRIBUTION WIDTH 12.2 % (11.5-14.5); WHITE BLOOD COUNT 14.8 10^3/ul (4.5-11.0)
--- NOTE | 2018-07-17 09:11 | RAD ---
HISTORY: Follow-up COMPARISON: CT chest without contrast from 07/15/2018 TECHNIQUE: Chest PA and lateral FINDINGS: LINES AND TUBES: None. LUNG AND PLEURA: The lungs are well inflated and clear. No pleural effusion or pneumothorax. HEART AND MEDIASTINUM: There is redemonstration of pneumomediastinum. Six the heart is not enlarged. No aortic atherosclerotic calcification present. The hilar and mediastinal contours are within normal limits. SKELETAL STRUCTURES: The bony structures are within normal limits for the patient's age. VISUALIZED UPPER ABDOMEN: Normal. OTHER FINDINGS: Improving soft tissue emphysema at the bases of the neck and bilateral upper chest wall. IMPRESSION: Redemonstration of pneumomediastinum. Improving soft tissue emphysema in the lower neck and upper chest clark.
[2018-07-17] MEDS: guaiFENesin-DM 600-30 mg ER Tab PO SCH (10:54)
--- NOTE | 2018-07-17 12:20 | CP.PCM.PN ---
Subjective - Date & Time of Evaluation Date of Evaluation: 07/17/18 Time of Evaluation: 10:00 - Subjective Subjective: Pt seen and examined at bedside, reports to be feeling significantly better. Denies neck pain, SOB. Objective - Vital Signs/Intake and Output Vital Signs (last 24 hours): Temp Pulse Resp BP Pulse Ox 98.2 F 64 18 108/70 98 07/17/18 06:00 07/17/18 06:00 07/17/18 06:00 07/17/18 06:00 07/17/18 06:00 Intake and Output: 07/17/18 07/17/18 06:59 18:59 Intake Total 500 Output Total 200 Balance 300 - Medications Medications: Current Medications Albuterol Sulfate (Albuterol 0.083% Inhal Larissa (2.5 Mg/3 Ml) Ud) 2.5 mg INH [id number] [facility] Last Admin: 07/17/18 07:46 Dose: 2.5 mg Albuterol Sulfate (Albuterol 0.083% Inhal Larissa (2.5 Mg/3 Ml) Ud) 2.5 mg INH Q2H PRN PRN Reason: Shortness of Breath Last Admin: 07/16/18 05:45 Dose: 2.5 mg Guaifenesin/Codeine Phosphate (Robitussin W/Codeine) 5 ml PO Q4H PRN PRN Reason: Cough and congestion Guaifenesin/Dextromethorphan (Mucinex-Dm 600-30 Mg) 1 tab PO BID [facility] Last Admin: 07/17/18 10:54 Dose: 1 tab Methylprednisolone (Solu-Medrol) 20 mg IVP DAILY [facility] - Labs Labs: 07/17/18 05:45 07/17/18 05:45 - Constitutional Appears: Non-toxic, No Acute Distress - Head Exam Head Exam: NORMAL INSPECTION - Eye Exam Eye Exam: Normal appearance - ENT Exam ENT Exam: Mucous Membranes Moist - Neck Exam Neck Exam: Full ROM, Normal Inspection - Respiratory Exam Respiratory Exam: Clear to Ausculation Bilateral, NORMAL BREATHING PATTERN - Cardiovascular Exam Cardiovascular Exam: REGULAR RHYTHM, +S1, +S2 - GI/Abdominal Exam GI & Abdominal Exam: Soft, Normal Bowel Sounds - Extremities Exam Extremities Exam: Normal Inspection Assessment and Plan - Assessment and Plan (Free Text) Assessment: 33yo male with Asthma exacerbation, and pneumomediastinum Asthma Exacerbation Pneumomediastinum Hx Smoking - currently afebrile, BP stable, comfortable in NAD, on room air sat 99%, STABLE - on exam neck has NO crepitus - Labs, iamging, chart reviewed - no evidence of Pneumothorax, rupture of esophagus on imaging - unclear etiology of pneumomediastinum - conservative management at this time - cough suppressing medications - pain control - switch Solumedrol 40mg IV BID Prednisone 40mg daily, with taper (patient has been on Steroids >7 days) - Duonebs PRN - start on Asmanex 110mcg 2 puff bid, Albuterol MDI - Pulmonary follow up as patient
[2018-07-17 13:56] VITALS: BP 106/65; PULSE 59; TEMP 97.9
--- NOTE | 2018-07-17 17:07 | CP.PCM.DIS ---
Provider - Provider Date of Admission: 07/17/18 11:38 Attending physician: Farhana Iniguez DO Primary care physician: NO PRIMARY CARE PROVIDER Time Spent in preparation of Discharge (in minutes): 45 Hospital Course - Lab Results Lab Results: Most Recent Lab Values WBC 14.8 10^3/ul (4.5-11.0) H D 07/17/18 05:45 RBC 4.52 10^6/uL (3.5-6.1) 07/17/18 05:45 Hgb 13.8 g/dL (14.0-18.0) L 07/17/18 05:45 Hct 41.7 % (42.0-52.0) L 07/17/18 05:45 MCV 92.3 fl (80.0-105.0) 07/17/18 05:45 MCH 30.5 pg (25.0-35.0) 07/17/18 05:45 MCHC 33.1 g/dl (31.0-37.0) 07/17/18 05:45 RDW 12.2 % (11.5-14.5) 07/17/18 05:45 Plt Count 285 10^3/uL (120.0-450.0) 07/17/18 05:45 MPV 11.2 fl (7.0-11.0) H 07/17/18 05:45 Gran % 86.4 % (50.0-68.0) H 07/17/18 05:45 Lymph % (Auto) 10.2 % (22.0-35.0) L 07/17/18 05:45 [place] % (Auto) 3.3 % (1.0-6.0) 07/17/18 05:45 Eos % (Auto) 0.1 % (1.5-5.0) L 07/17/18 05:45 Baso % (Auto) 0.0 % (0.0-3.0) 07/17/18 05:45 Gran # 12.81 (1.4-6.5) H 07/17/18 05:45 Lymph # (Auto) 1.5 (1.2-3.4) 07/17/18 05:45 [place] # (Auto) 0.5 (0.1-0.6) 07/17/18 05:45 Eos # (Auto) 0.0 (0.0-0.7) 07/17/18 05:45 Baso # (Auto) 0.00 K/mm3 (0.0-2.0) 07/17/18 05:45 Sodium 138 mmol/L (132-148) 07/17/18 05:45 Potassium 4.2 mmol/L (3.6-5.0) 07/17/18 05:45 Chloride 101 mmol/L (98-107) 07/17/18 05:45 Carbon Dioxide 27 mmol/L (21-33) 07/17/18 05:45 Anion Gap 14 (10-20) 07/17/18 05:45 BUN 14 mg/dL (7-21) 07/17/18 05:45 Creatinine 0.6 mg/dl (0.8-1.5) L 07/17/18 05:45 Est GFR ( Amer) > 60 07/17/18 05:45 Est GFR (Non-Af Amer) > 60 07/17/18 05:45 Random Glucose 118 mg/dL (70-110) H 07/17/18 05:45 Calcium 9.3 mg/dL (8.4-10.5) 07/17/18 05:45 Phosphorus 4.2 mg/dL (2.5-4.5) 07/16/18 06:00 Magnesium 1.8 mg/dL (1.7-2.2) 07/16/18 06:00 Total Bilirubin 0.6 mg/dL (0.2-1.3) 07/17/18 05:45 AST 17 U/L (17-59) 07/17/18 05:45 ALT 27 U/L (7-56) 07/17/18 05:45 Alkaline Phosphatase 62 U/L (38-126) 07/17/18 05:45 Total Protein 7.7 g/dL (5.8-8.3) 07/17/18 05:45 Albumin 4.0 g/dL (3.0-4.8) 07/17/18 05:45 Globulin 3.6 gm/dL 07/17/18 05:45 Albumin/Globulin Ratio 1.1 (1.1-1.8) 07/17/18 05:45 [id number] 138 mg/dL (83-199) 07/16/18 06:00 Urine Opiates Screen Positive (NEGATIVE) H 07/16/18 05:35 Urine Methadone Screen Negative (NEGATIVE) 07/16/18 05:35 Ur Barbiturates Screen Negative (NEGATIVE) 07/16/18 05:35 Ur Phencyclidine Scrn Negative (NEGATIVE) 07/16/18 05:35 Ur Amphetamines Screen Negative (NEGATIVE) 07/16/18 05:35 U Benzodiazepines Scrn Negative (NEGATIVE) 07/16/18 05:35 U Oth Cocaine Metabols Negative (NEGATIVE) 07/16/18 05:35 U Cannabinoids Screen Positive (NEGATIVE) H 07/16/18 05:35 - Hospital Course Hospital Course: Upon admission Mr. Gore is a 33 year/old male with a past medical history of Crohns disease s/p bowel resection in 2002 and asthma (no history of intubations, uses inhaler 2x/month) who presented to the [facility] Emergency Department on 07/15 complaining of shortness of breath and wheezing for 7 days. Patient stated that one week ago he began experiencing a productive cough with yellow sputum and was admitted to [facility]. However, he left A on 07/11 after a two-day stay. Patient also reported that around this time he began noticing a crunching sensation around his neck and chest. He denied any dysphagia, history of trauma to the chest, vomiting, forceful coughing, fever, chills, chest pain, abdominal pain, nausea, vomiting, dizziness, and recent travel. Patient admitted to smoking and consuming alcohol occasionally, as well as intermittent marijuana use. Hospital course The patient was started on albuterol, mucinex-dm, and solumedrol. Urine toxicology was positive for cannabinoids and opiates. A chest x-ray revealed subcutaneous emphysema of the neck bilaterally and a small left apical pneumothorax. A CT of the chest revealed severe pneumomediastinum and severe subcutaneous air. GI was consulted and an gastrograffin study was ordered. The x-ray showed no esophageal rupture. ENT was also consulted and recommended that a cough medicine be initiated. Robutissin with codeine was started. Pulmonology was consulted and recommended that the patient follow-up in a pulmonology clinic as an outpatient and receive a repeat chest x-ray in one month after discharge. A repeat chest x-ray on 07/17 showed improving soft tissue emphysema in the lower neck and upper chest clark. For a detailed summary of the patient's stay, please refer to the medical record. Upon discharge Patient is to follow-up as an outpatient at the [facility] clinic. Patient is to establish care with an outpatient metalsmith apprentice and receive a chest x-ray in one month after discharge. Patient should continue to take the following medications: albuterol PRN, robitussin with codeine, steroid taper, tessalon pearles, and asthmanex. The patient was given a 3-day supply of robutissin with codeine. Patient was educated to stop smoking. All instructions were explained to the patient, and the patient understood. Discharge Exam - Head Exam Head Exam: ATRAUMATIC, NORMAL INSPECTION, NORMOCEPHALIC - Eye Exam Eye Exam: EOMI, Normal appearance, PERRL Pupil Exam: NORMAL ACCOMODATION, PERRL - Respiratory Exam Respiratory Exam: NORMAL BREATHING PATTERN. absent: Accessory Muscle Use, Chest Wall Tenderness, Decreased Breath Sounds, Rales, Rhonchi, Wheezes - Cardiovascular Exam Cardiovascular Exam: REGULAR RHYTHM, +S1, +S2. absent: Gallop, Rubs - GI/Abdominal Exam GI & Abdominal Exam: Normal Bowel Sounds, Soft, Unremarkable. absent: Tenderness - Extremities Exam Extremities exam: calf tenderness (Not present), full ROM, normal capillary refill, pedal pulses present - Back Exam Back exam: NORMAL INSPECTION. absent: CVA tenderness (L), CVA tenderness (R) - Neurological Exam Neurological exam: Alert, CN II-XII Intact, Oriented x3 - Psychiatric Exam Psychiatric exam: Normal Affect, Normal Mood - Skin Skin Exam: Dry, Intact, Normal Color, Warm Discharge Plan - Discharge Medications Prescriptions: Benzonatate [Tessalon Perles] 100 mg PO TID PRN #15 sgl PRN Reason: Cough guaiFENesin/Codeine [Robitussin w/Codeine] 5 ml PO Q4H PRN 3 Days #1 udc PRN Reason: Cough And Congestion Ipratropium/Albuterol Sulfate [Iprat-Albut 0.5-3(2.5) mg/3 ml] 0.5 mg INH PRN PRN #1 ampul.neb PRN Reason: Shortness Of Breath Mometasone [Asmanex Twisthaler 110 MCG] 2 puff INH BID 30 Days #56 puff predniSONE [predniSONE Tab] 10 mg PO DAILY #30 tab - Follow Up Plan Condition: GUARDED Disposition: HOME/ ROUTINE Instructions: Acute Bronchitis, Adult (DC), Asthma (DC), Asthma (GEN) Additional Instructions: - Please follow up with your Primary Care Physician or [facility] clinic within this week - For [facility] clinic, your appointment has been made for August 01, 2018 at 2:30 PM. - Please follow up in the Pulmonary Clinic - For [facility] Pulmonary clinic, your pulmonology clinic appointment has been made for August 06, 2018 @ 10:30AM. - Please get a repeat chest X-Ray in 1 month. [facility] at [facility] can write you a prescription for the chest x-ray - Please take your prescribed medications as directed. Tessalon Perles as needed Robitussin with Codeine as needed - Do not drive or operate heavy machinary while using this drug Duoneb Asmanex Prednisone taper For tessalon pearles, Swallow whole. Do not puncture, chew, bite, or crush capsule as it will make you numb. - If any new symptoms, return to emergency room Referrals: [facility] at [facility] [Outside] [facility] [Outside]
--- NOTE | 2018-07-17 17:24 | CON ---
DATE OF CONSULTATION: 07/17/2018 REASON FOR CONSULTATION: I have been asked to see this 33-year-old male with a history of asthma, recent increase in cough, history of Crohn's disease, who comes to the hospital with shortness of breath and neck pain for the last 5 days. Workup in the emergency room revealed pneumomediastinum. ENT evaluation was negative. The patient had an esophagram, which showed no evidence of esophageal perforation. He currently denies any neck or chest pain. He denies any rectal bleeding or diarrhea. He is noncompliant with his medications for Crohn's disease and has not had any regular followup for several years. PAST MEDICAL HISTORY: Notable for asthma and Crohn's disease. PAST SURGICAL HISTORY: Notable for bowel resection for Crohn's disease and a patellar tendon repair. FAMILY HISTORY: Noncontributory. SOCIAL HISTORY: He smokes less than a half pack of cigarettes per day. Consumes alcohol on a social basis. He uses marijuana intermittently. 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 PHYSICAL EXAMINATION: Well-developed male lying in bed in no acute distress. Vital signs reveal temperature of 98.2, blood pressure 108/70, heart rate 64. HEENT reveal sclerae to be white. Conjunctivae pink. Neck is supple. There are no crepitus in the neck or chest wall. Lungs reveal some mild wheezing. Heart exam reveals regular rate and rhythm. Abdomen is soft and nontender. Extremities show no edema. LABORATORY DATA: White blood cell count 14.8 and hemoglobin 13.8. Chemistries reveal blood sugar of 118, otherwise normal electrolytes. Tox screen is positive for opiates and cannabis. IMPRESSION: 1. A 33-year-old male with pneumomediastinum, clinically improving. This may have been caused by his excessive coughing from asthma. There is no evidence of esophageal perforation. 2. Quiescent Crohn's disease. RECOMMENDATIONS: 1. No further GI workup is needed at this time. 2. The patient has been instructed to follow up with his damper worker for treatment of his Crohn's disease, which is quiescent at this time. Travis Holloway MD
[2018-07-18] MEDS ORDERED: MethylPREDNISolone 40 mg Vial IVP SCH (10:00)
== END 2018-07-17 17:29 | disposition home or self-care (01) | DRG 94 ==
LOC: ED 16:18 → ERH 21:44 → 2RNO 23:42 → OBSVTOIN 07-17 11:38
PROVIDERS: ADMIT Internal Medicine; ATTEND Internal Medicine
PROC: 3E0F7GC Introduction of Other Therapeutic Substance into Respiratory Tract, Via Natural or Artificial Opening (ICD-10-PCS; principal; 2018-07-16)
DX: J98.2 Interstitial emphysema (principal); J45.901 Unspecified asthma with (acute) exacerbation; K50.90 Crohn's disease, unspecified, without complications; Z91.14 Patient's other noncompliance with medication regimen; F17.210 Nicotine dependence, cigarettes, uncomplicated; F12.90 Cannabis use, unspecified, uncomplicated; Z90.49 Acquired absence of other specified parts of digestive tract